=== PATIENT | male | born 1955 | race African-American/Black ===

== ENCOUNTER 2018-03-14 10:21 | Outpatient (CLI) | payer OTHER ==
--- NOTE | 2018-03-14 13:22 | RAD ---
LUMBAR SPINE THREE VIEWS: INDICATIONS: Lumbar radiculopathy. COMPARISON: None. FINDINGS: No abnormal translational motion is evident. There is moderate multilevel disk degenerative disease, most pronounced at L3-L4 and L5-S1. Vertebral body heights are within normal limits. There are mil d vascular calcifications involving the abdominal aorta. IMPRESSION: No abnormal translational motion. POS: [facility]
--- NOTE | 2018-03-14 14:16 | MRI ---
NONCONTRAST MRI LUMBAR SPINE: DATE: 03/14/18. HISTORY: Lumbar radiculopathy. Patient lifting heavy objects on April 2017 and now has back pain descending th e left leg which is progressive worsening. COMPARISON: 03/14/13. FINDINGS: Retroperitoneal structures demonstrate a normal MRI appearance. There is mild nonspecific heterogeneity of the bone marrow also seen on prior exam. Conus medullaris is normal in appearance and terminates at the level of the L1 vertebral body. L1-2 level: There is no significant disk bulge or disk herniation. Central spinal canal and neural foramina are patent. L2-3 level: There is mild broad-based disk-osteophyte complex which does result I mild flattening of the anterior aspect of the thecal sac. The neural foramina are patent. L3-4 level: There is a mild broad-based disk-osteophyte complex with facet degenerative changes pres ent. Central spinal canal is patent. There is only minimal narrowing of each neural foramen present . Facet degenerative changes are present. L4-5 level: Again noted is a broad-based disk bulge with a central disk protrusion. The disk protru maria d may potentially contact the bilateral traversing L5 nerve roots. There is prominence of epidura l fat at this level posteriorly and laterally which does result in mild narrowing of the central spi nal canal. There is mild bilateral neural foraminal narrowing. L5-S1: There is loss of intervertebral disk height again noted. There is fluid signal intensity see n in the intervertebral disk with preservation of the endplates. There is a broad-based disk bulge w ith a prominent central and left paracentral disk extrusion. However, there was a bilobed appearance of the extruded disk material on the prior study, which extended to the right, is no longer seen. T his disk protrusion on the current study likely results in mass effect on the traversing left S1 nerv e root. There is moderate bilateral neural foraminal narrowing greater on the left. There is epidur al lipomatosis again present at this level which does result in mild deformity of the thecal sac resu lting in mild narrowing of the thecal sac at this level. IMPRESSION: 1. Improvement in the large bilobed disk extrusion at the L5-S1 level and disk material previously n oted extending to the right midline and inferiorly is not present on this examination. However, the large central and left paracentral disk protrusion does persist and likely affects the traversing lef t S1 nerve root. 2. Epidural lipomatosis posterior to the L3-4 and L4-5 levels as well as the L5-S1 level including e pidural lipomatosis on the left adjacent to the thecal sac which does result in mild deformity of the thecal sac at the L5-S1 level. 3. Multilevel degenerative disk changes throughout the remainder of the lumbar spine which are overa ll similar to prior exam. 4. Fluid signal intensity in the L5-S1 intervertebral disk, and there is slightly greater loss of he ight of the intervertebral disk on the current study. End plates are preserved, and the fluid signal intensity in the intervertebral disk may be attributable to degenerative changes. POS: [facility]
== END 2018-03-14 10:22 | disposition home or self-care (01) ==
LOC: TBSIIMAG 10:21
PROVIDERS: ATTEND Neurological Surgery
DX: M47.26 Other spondylosis with radiculopathy, lumbar region (principal); M51.27 Other intervertebral disc displacement, lumbosacral region; E88.2 Lipomatosis, not elsewhere classified
CPT/HCPCS: 72100; 72148

== ENCOUNTER 2018-05-11 12:15 | Outpatient (CLI) | payer OTHER ==
[2018-05-11 15:20] LABS: Hemoglobin 13.3 g/dL (14.0-18.0); Mean Corpuscular HGB CONC 34.5 g/dL (32.0-36.0); Mean Corpuscular Hemoglobin 30.4 pg (27.0-31.0); Mean Corpuscular Volume 88.1 fL (78.0-98.0); Platelet Count 221 thou/uL (130-400); RBC Distribution Width 12.6 % (11.5-14.5); Red Blood Cell (RBC) Count 4.38 mill/uL (4.70-6.10); White Blood Cell (WBC) Count 6.1 thou/uL (4.8-10.8)
[2018-05-11 15:29] LABS: PTT 25.4 SEC (22.9-36.1)
[2018-05-11 15:33] LABS: Anion Gap 15 mmol/L (10-20); BUN (Urea Nitrogen) 17 mg/dL (8.4-25.7); Calc. Creatinine Clearance 0 mL/min (70-130); Calcium 10.1 mg/dL (7.8-10.44); Carbon Dioxide 25 mmol/L (23-31); Chloride 106 mmol/L (98-107); Estimated GFR-MDRD Greater than 90; Glucose 131 mg/dL (80-115); Potassium 4.3 mmol/L (3.5-5.1); Sodium 142 mmol/L (136-145)
== END 2018-05-11 12:16 | disposition home or self-care (01) ==
LOC: LABBT 12:15
PROVIDERS: ATTEND Neurological Surgery
DX: Z01.812 Encounter for preprocedural laboratory examination (principal); M48.061 Spinal stenosis, lumbar region without neurogenic claudication; M51.26 Other intervertebral disc displacement, lumbar region
CPT/HCPCS: 80048; 85027; 85610; 85730

== ENCOUNTER 2018-05-12 05:39 | Day surgery (SDC) | payer OTHER ==
[2018-05-11 12:38] VITALS: BMI 30.8
--- NOTE | 2018-05-11 14:30 | HP ---
CHIEF COMPLAINT: Back pain. HISTORY OF PRESENT ILLNESS: Mr. Lorenzo is a 63-year-old male who presents with left buttocks eddie n and left S1 radicular symptoms. He had his pain start in 2013 when he was evaluated by Dr. Mj flores and at that time was recommended an L4-S1 laminectomy and left L5 microdiskectomy. After that vis it, with a few injections and PT the pain resolved. The pain has been present ever since and is cons tant. Dr. Bae has given 3 DIOGO that seemed to help some, but did not last. He is looking for a [employer] ore permanent relief for his pain. REVIEW OF SYSTEMS: CONSTITUTIONAL: Denies fever or chills. EYES: No change in vision or hearing. CARDIOVASCULAR: Denies chest pain, shortness of breath, diaphoresis. RESPIRATORY: Denies cough, hemoptysis or shortness of breath. GASTROINTESTINAL: Denies any abdominal pain, nausea, vomiting, diarrhea, change in stool formation. GENITOURINARY: Denies trouble with urination, no frequent urination, no blood in the urine. SKIN: Denies any skin rash or bruising. PAST MEDICAL HISTORY: Diabetes mellitus, hypertension, hypercholesterolemia, hypogonadism, low test osterone, colon polyps/diverticulosis, hip pain, lumbar radiculopathy. PAST SURGICAL HISTORY: Knee arthroscopy on the left side, rotator cuff repair on the left side, elbo w on the right. HOSPITALIZATIONS: See surgical history above. FAMILY HISTORY: Father is . Mother is . Siblings are alive. SOCIAL HISTORY: Mr. Lorenzo is a nonsmoker. Drinks alcohol occasionally. Works for [employer]. He is and has children. He likes to play music at [employer]. MEDICATIONS: Lisinopril, metformin, Novolin, amlodipine, aspirin, allopurinol, [place], gabapentin. ALLERGIES: IODINE. PHYSICAL EXAMINATION: HEENT: Normocephalic, atraumatic. Hearing is intact. Moist mucous membranes. Trachea is midline. No masses are noted. EYES: Pupils are equal, round, and reactive to light. Extraocular movements are intact. Sclera is not injected. No icterus. PSYCHIATRIC: Normal mood and affect. CARDIOVASCULAR: No cyanosis or clubbing noted. Intact pedal pulses. MUSCULOSKELETAL: Lower extremities, 4/5 strength in the left gastroc muscle. Sensory deficits in th e left S1 dermatome. Tender to palpate in the left buttock. RESPIRATORY: Even respirations, good effort. All lung goodrich are clear. NEUROLOGIC: Awake, alert and oriented x3. Cranial nerves II-XII are grossly intact. Speech is flue nt. Answers questions appropriately. Antalgic gait and station. IMAGING: MRI medium to large L4-L5 disk with lateral recess disease, large L5-S1 disk with stenosis and stretch of the left S1 root and touching L5. ASSESSMENT: 1. Acute left lumbar radiculopathy. PLAN: Dr. Harkins has offered surgery. Informed consent; we have discussed the indications, risks , benefits, alternatives, and expected results from surgery. The risks discussed includes, but is no t limited to bleeding, infection, CSF leak, nerve damage, weakness, incontinence, cauda injury, arach noiditis, paralysis, ventilator dependence, wheelchair dependence, loss of vision, cardiopulmonary c omplications of anesthesia or , long-term complications discussed include, but were not limited to spinal instability and the need for future surgery. He understands the risks and is willing to pr oceed. We have planned a laminectomy, L4-5, S1 with microdiskectomy L5-S1.
[2018-05-12] MEDS ORDERED: CEFAZOLIN/Water 2 GM/20 ML SYRINGE ONE (05:55)
[2018-05-12] MEDS ORDERED: Bupivacaine HCl 0.5%/Epinephrine 1:200,000/PF 30 ml Vial ONE (06:17)
[2018-05-12] MEDS ORDERED: Sodium Chloride 0.9% 10 ML ONE (06:17)
[2018-05-12] MEDS ORDERED: Thrombin 5000 UNITS/5 ML VIAL ONE ×2 (06:17→06:31)
[2018-05-12] MEDS ORDERED: Midazolam HCl 2 mg/2 ml Vial ONE ×2 (06:21→06:23)
[2018-05-12] MEDS ORDERED: Fentanyl 100 MCG/2 ML VIAL ONE ×4 (06:59→11:57)
--- NOTE | 2018-05-12 10:55 | OP ---
DATE OF PROCEDURE: 05/12/2015 SURGEON: Aditya Harkins M.D. PICKING MACHINE OPERATOR HELPER: Marianne Peguero PA-C. PREOPERATIVE INDICATION: Treat pain, prevent neurological deterioration. PREOPERATIVE DIAGNOSES: Intervertebral disk disease causing lateral recess and central canal stenosi s at L4-5 and L5-S1 with neurogenic claudication and multiple left-sided lumbar radiculopathies. POSTOPERATIVE DIAGNOSES: Intervertebral disc disease causing lateral recess and central canal stenos is at L4-5 and L5-S1 with neurogenic claudication and multiple left-sided lumbar radiculopathies. OPERATIVE PROCEDURE: Decompressive laminectomy, medial facetectomy, foraminotomy L4-5, L5-S1, left-s ided L5-S1 microdiskectomy. PREOPERATIVE MEDICATION: Ancef 2 grams IV. DRAIN NUMBER: Zero. DRAIN TYPE: None. OPERATIVE DICTATION: The patient was brought to the operating room. General endotracheal anesthesia was induced. The patient was positioned prone on the operating table with his chest and hips suppor nita by gel-filled chest rolls. A lateral fluoro radiograph was used to plan our incision. The lumba r skin was sterilely prepped and draped. We opened with a 10 blade knife and controlled bleeding wit h bipolar and monopolar cautery. Using monopolar cautery to dissect the subcutaneous tissues to thor acodorsal fascia. We incised the fascia in the midline and reflected the paraspinal muscles off the spinous process and lamina of L4, L5, and S1. We placed a self-retaining retractor. We took a later al fluoro radiograph to confirm levels upon which we were operating. We then using Jean Carlos Duenas rongeurs to fashion laminectomy at L4, L5 and S1. We widened our laminectomy defect until we were flush with the pedicles of L4, L5, and S1. We identified the exiting nerve roots and perfor med foraminotomies over these nerve roots. We ensured the Miller ball could pass through the lateral recess and out the foramen with the L5 and S1 nerve roots bilaterally as well as the L4 nerve roots without any compression. We irrigated copiously with bacitracin irrigation. We turned our attention to disk protrusion at the lumbosacral interspace. The operating microscope was brought in the field . Under microscopic magnification using microsurgical techniques, we carefully mobilized the S1 nerve r oot medially. We incised the disk and this was quite calcified. Using a bone curet, we reduced most of the calcified disk back towards the interspace and removed it in a piecemeal fashion. Diskectomy was nearly completely ossified. At the completion of the diskectomy, the S1 nerve root on the left side was much looser. We irrigated copiously with bacitracin irrigation. We inspected the dura. Th ere is a small pinhole in the midline of the dura shaped the exact size of an injection needle. Ther e was a small bit of arachnoid protruding through and then very gentle CSF leak. We reinforced this with a 9-0 Prolene and DuraSeal tissue sealant. The DuraSeal was added after copious amounts of irri gation of the wound. We infused local anesthetic in the paraspinal muscles. We treated the wound wi th vancomycin powder due to his diabetes. We closed the wound in anatomic layers. We applied a ster ile dressing. This was a clean case and no contamination.
[2018-05-12] MEDS ORDERED: Ketorolac Tromethamine 30 MG/ML VIAL ONE (11:12)
[2018-05-12] MEDS ORDERED: Morphine 4 MG/ML Carpuject SLOW IVP PRN (11:26)
[2018-05-12] MEDS ORDERED: Acetaminophen/Codeine 30-300mg Tablet PO PRN ×2 (11:26)
[2018-05-12] MEDS ORDERED: Zolpidem Tartrate 5 MG TAB PO PRN (11:26)
[2018-05-12] MEDS ORDERED: Promethazine 25 MG TAB PO PRN (11:26)
[2018-05-12] MEDS ORDERED: Bisacodyl 10 MG SUPP PR PRN (11:26)
[2018-05-12] MEDS ORDERED: Ondansetron HCl/PF 4 MG/2 ML Vial IM PRN (11:26)
[2018-05-12] MEDS ORDERED: traMADol HCl 50 MG TAB PO PRN ×2 (11:26)
[2018-05-12] MEDS ORDERED: Fleet Enema 133 ML BOT PR PRN (11:26)
[2018-05-12] MEDS ORDERED: Mag-Al 1200 mg/1200 mg/30 ML UDCUP PO PRN (11:26)
[2018-05-12] MEDS ORDERED: Promethazine HCl 12.5 MG SUPP PR PRN (11:26)
[2018-05-12] MEDS ORDERED: Milk Of Magnesia 30 ML UDCUP PO PRN (11:26)
[2018-05-12] MEDS ORDERED: tiZANidine HCl 4 MG TAB PO PRN (11:26)
[2018-05-12] MEDS ORDERED: Scopolamine 1.5 mg/72 hour Patch TD PRN (11:26)
[2018-05-12] MEDS ORDERED: Acetaminophen 325 MG TAB PO PRN (11:26)
[2018-05-12] MEDS ORDERED: Promethazine HCl 25 MG/ML VIAL IM PRN (11:26)
[2018-05-12] MEDS ORDERED: Acetaminophen 650 MG Suppository PR PRN (11:26)
[2018-05-12] MEDS ORDERED: diphenhydrAMINE 25 MG CAP PO PRN (11:33)
[2018-05-12] MEDS ORDERED: diphenhydrAMINE 50 MG/ML VIAL IVP PRN (11:33)
[2018-05-12] MEDS ORDERED: HYDROcodone/Acetaminophen 10/325 mg Tablet PO PRN (17:37)
[2018-05-12] MEDS: Ketorolac Tromethamine 30 MG/ML VIAL IVP SCH (18:12)
[2018-05-12] MEDS: Insulin NPH/Reg Insulin Hm 300 UNITS/3 ML VIAL SC SCH (21:37)
[2018-05-13] MEDS: Ketorolac Tromethamine 30 MG/ML VIAL IVP SCH ×2 (00:13→05:05)
[2018-05-13 05:28] VITALS: TEMP 98.1
[2018-05-13] MEDS ORDERED: Tamsulosin HCl 0.4 MG CAP PO SCH (06:00)
[2018-05-13 07:32] VITALS: BP 178/84
[2018-05-13] MEDS: Insulin NPH/Reg Insulin Hm 300 UNITS/3 ML VIAL SC SCH (07:38)
[2018-05-13] MEDS ORDERED: metFORMIN 500 MG TAB PO SCH (08:00)
[2018-05-13] MEDS ORDERED: Alogliptin 6.25 MG TAB PO SCH (08:00)
--- NOTE | 2018-05-13 08:17 | PRG ---
DATE OF SERVICE: 05/13/2018 Mr. Lorenzo is 1 day out from lumbar decompression. He stayed overnight, but he has been ambulato ry. He is anxious to get home, but he is concerned about some drainage on the bandage. On examinati on, he has good strength and sensation in lower extremities. He is already up and walking this morni ng. There is some serosanguineous drainage without halo on the bandage, and the mallet is moderate. We will send Mr. Lorenzo home today. He can keep the bandage off. Bandage can be used to prevent the drainage from affecting his clothing, but otherwise it can be left open to air. I encouraged am bulation. We talked about activity restrictions and followup arrangements as well as wound care.
[2018-05-13] MEDS ORDERED: Lisinopril 20 MG TAB PO SCH (09:00)
[2018-05-13] MEDS ORDERED: Atorvastatin Calcium 10 MG TAB PO SCH (09:00)
[2018-05-13] MEDS ORDERED: Amlodipine 10 MG TAB PO SCH (09:00)
[2018-05-13] MEDS ORDERED: Colchicine 0.6 MG TAB PO SCH (09:00)
== END 2018-05-13 09:08 | disposition home or self-care (01) ==
LOC: SDC 05:39 → SURG B 12:22 → SDC 05-13 09:08
PROVIDERS: ATTEND Neurological Surgery
PROC: 01NB0ZZ Release Lumbar Nerve, Open Approach (ICD-10-PCS; principal; 2018-05-12)
DX: M48.062 Spinal stenosis, lumbar region with neurogenic claudication (principal); M48.07 Spinal stenosis, lumbosacral region; M51.17 Intervertebral disc disorders with radiculopathy, lumbosacral region; E11.9 Type 2 diabetes mellitus without complications; I10 Essential (primary) hypertension; E78.00 Pure hypercholesterolemia, unspecified; Z91.041 Radiographic dye allergy status; Z79.82 Long term (current) use of aspirin; Z79.899 Other long term (current) drug therapy; Z79.84 Long term (current) use of oral hypoglycemic drugs
CPT/HCPCS: 36416; 76001; 96374; A4216; J0131; J0670; J1885; J2250; J2270; J3010; J3370; J3490

== ENCOUNTER 2018-08-17 09:50 | Outpatient (CLI) | payer OTHER ==
--- NOTE | 2018-08-17 11:38 | RAD ---
LUMBAR SPINE SERIES WITH FLEXION AND EXTENSION AND OBLIQUES: Date: 08/17/18 HISTORY: Patient is post surgery, left-sided leg and back pain. FINDINGS: The vertebral bodies are normal in height. Degenerative osteophytes are seen along the course of the spine. There is marked disc narrowing at L5-S1. Laminectomy changes are seen extending from L4 to L5. On the neutral view, there is a very minimal retrolisthesis of L4 on L5, which perhaps reduces sligh tly in flexion. IMPRESSION: Arthritic changes of the spine as discussed above. POS: [facility]
== END 2018-08-17 09:51 | disposition home or self-care (01) ==
LOC: TBSIIMAG 09:50
PROVIDERS: ATTEND Neurological Surgery
DX: M51.26 Other intervertebral disc displacement, lumbar region (principal); M47.896 Other spondylosis, lumbar region
CPT/HCPCS: 72100

== ENCOUNTER 2018-08-31 14:56 | Outpatient (CLI) | payer OTHER ==
--- NOTE | 2018-08-31 17:54 | MRI ---
MRI OF THE LEFT KNEE WITHOUT CONTRAST: Date: 08/31/18 INDICATION: History of left knee pain and popping and swelling. History of surgery 15-020 years ago. COMPARISON: Prior MRI of the left knee dated 04/24/03. FINDINGS: There is a linear area of horizontally oriented T2 signal abnormality involving the posterior body an d posterior junction of the medial meniscus in a similar area as what was identified on the compariso n examination. Findings may reflect recurrent tear versus scar. Lateral meniscus is partially discoid , but appears intact. There has been progressive worsening of the osteophytosis and chondrosis affect ing the left knee consistent with moderate osteoarthrosis. This is most severe affecting the medial f emorotibial and lateral patellofemoral compartments where there is moderate to prominent chondrosis. There is a moderate size semimembranosus of the medial gastrocnemius popliteal cyst. The ACL appears intact. There is some slight mucoid degeneration of the ACL. The MCL and LCLC are intact. The extenso r mechanism is intact. IMPRESSION: 1. Worsening osteoarthrosis of the left knee, moderate in severity. 2. High T2 horizontally oriented signal involving the posterior body and posterior junction of the m edial meniscus may reflect scar versus recurrent tear. 3. Partially discoid lateral meniscus without visible evidence of tear. 4. Mucoid degeneration of the ACL. 5. Clement's cyst. POS: [facility]
== END 2018-08-31 14:57 | disposition home or self-care (01) ==
LOC: TBSIIMAG 14:56
PROVIDERS: ATTEND Orthopaedic Surgery
DX: S83.242A Other tear of medial meniscus, current injury, left knee, initial encounter (principal); M17.12 Unilateral primary osteoarthritis, left knee; M71.22 Synovial cyst of popliteal space [Baker], left knee; M23.8X2 Other internal derangements of left knee; R93.7 Abnormal findings on diagnostic imaging of other parts of musculoskeletal system